=== PATIENT | female | born 1955 | race Caucasian/White ===

== ENCOUNTER 2016-07-19 05:08 | Inpatient (IN) | payer OTHER ==
[2016-07-07 12:18] LABS: URINE BILIRUBIN NEGATIVE (Negative); URINE BLOOD NEGATIVE (Negative); URINE COLOR YELLOW; URINE GLUCOSE-RANDOM* NEGATIVE (Negative); URINE KETONES NEGATIVE (Negative); URINE LEUKOCYTES-REFLEX NEGATIVE (Negative); URINE PROTEIN (DIPSTICK) NEGATIVE (Negative); URINE UROBILINOGEN 0.2 E.U./dl (0.2-1.0)
[2016-07-07 12:20] LABS: HEMATOCRIT 43.1 % (37.0-47.0); HEMOGLOBIN 14.7 gm/dL (12.0-15.0); MCH 29.8 pg (26.0-34.0); MCHC 34.1 % (28.0-37.0); MCV 87.5 fL (80.0-100.0); RBC 4.93 mil/uL (4.20-5.00); RDW 14.2 % (10.5-14.5); WBC 8.8 thou/uL (4.0-11.0)
[2016-07-07 12:30] LABS: PROTIME 10.6 Seconds (9.3-11.4)
[2016-07-07 12:40] LABS: ALBUMIN 3.9 g/dL (3.4-5.0); CALCIUM 9.7 mg/dL (8.5-10.1); CREATININE 0.7 mg/dL (0.6-1.3); POTASSIUM 3.7 mmol/L (3.5-5.1)
[2016-07-19] VITALS (7 sets, daily range): BP systolic 127–148; BP diastolic 77–89
[~2016-07-19] VITALS: Ht 157.5 cm; Wt 87.5 kg
--- NOTE | ~2016-07-19 | O ---
[facility] [place] [address] OPERATIVE REPORT Name: KYRIE JONES Room #: 540-P ADM IN M.R.#: [id number] Admission: 07/19/16 Attend Phys: Mainor Lugo MD Discharge: Date of : 57 Report #: [id number] THIS REPORT FOR: //name// CC: Romina Lugo DATE OF SERVICE: 07/19/2016 PREOPERATIVE DIAGNOSIS: Left knee degenerative joint disease, severe. POSTOPERATIVE DIAGNOSIS: Left knee degenerative joint disease, severe. OPERATIVE PROCEDURE: Left total knee arthroplasty. SURGEON: Mainor Lugo MD CHIMNEY MECHANIC: Cyrus Patino NP INDICATIONS FOR CHIMNEY MECHANIC: During the course of operation, extensive manipulation, retraction and limb positioning was required. This was afforded to me by my property assistant. ANESTHESIA: General. INDICATIONS FOR THE PROCEDURE: See hospital H and P. IMPLANTS UTILIZED: We used DePuy PFC knee system. We used a cruciate retaining femoral component of size 2.5. We used a size 2.5 tibial tray with a 10 mm insert and a 35 mm oval dome patella. DESCRIPTION OF PROCEDURE: After adequate general anesthesia had been obtained, the patient's left lower extremity was prepped and draped in the usual meticulous sterile fashion. The limb was gravity exsanguinated and tourniquet inflated to 350 torr. An anterior midline incision was made, subQ divided sharply. Hemostasis obtained with electrocautery. Medial parapatellar incision was made. Infrapatellar fat pad excised. Medial release performed. Drill was used to drill the distal femur. This hole was enlarged, irrigated, suctioned and then the intramedullary guide placed the full length of the femur. A distal femoral cutting guide was placed at 5 degrees of valgus which matched the patient's anatomy and was placed in appropriate rotation. Distal femoral cutting guide pinned into place, distal femoral cut was made. Measuring device determined size 2.5 as the appropriate size for this patient. We impacted the cutting guide into place and the anterior, posterior and chamfer cuts were made. Rongeur was used to remove additional osteophytes. [facility] [address] [place] [address] OPERATIVE REPORT Name: ROBERTKYRIE B Room #: 540-P ADM IN M.R.#: [id number] Admission: 07/19/16 Attend Phys: Mainor Lugo MD Discharge: Date of : 57 Report #: [id number] At this time, the ACL was transected, tibia translated anteriorly, menisci were excised. The drill was used to drill the central portion of the tibia. This hole was enlarged, irrigated, suctioned and then the intramedullary guide placed the full length of the tibia. The proximal tibial cutting guide placed at appropriate height. Proximal tibial cut was made. 2.5 tray gave us the best coverage on the tibia. Trial components were put in position. With 10 spacer, she had the best flexion and extension gap. The patella was measured, cutting guide clamped into place, patellar cut was made, 35 template gave us the best coverage. Pedicles were drilled, trial components were put in position and tracked normally. At this time, we took the knee through several cycles of flexion and extension. The tibial tray rotation was marked, distal femur drilled and trial components removed. Tibial keel cuts were made. We irrigated the knee with both pulse lavage and antibiotic irrigation. Bone plugs were placed to proximal tibia and distal femur. The cement was vacuum mixed, and when it reached the appropriate consistency, the knee was thoroughly dried. The tibial tray was cemented into place. Excess cement was removed. The polyethylene was impacted into place and the femur impacted into place and the knee was taken out to 30 degrees of flexion and uniform compression placed across the components. Patellar button was then cemented into place and again excess cement was removed. Irrigation was placed in the wound and allowed to rest in the wound until the cement fully cured. When it had done so, the knee was irrigated, dried thoroughly and inspected. Drains were placed superolaterally both deep and superficial. The retinacular layer closed with a combination of interrupted [id number]-dy-[id number] #1 Vicryl as well as running #1 Tevdek. SubQ closed with 2-0 Monocryl, skin closed with rupert. Sterile compressive dressing was complied. Tourniquet deflated. <ELECTRONICALLY SIGNED> By: Mainor Lugo MD 07/19/16 1421 1220 1313 Mainor Lugo MD /nt
[~2016-07-19 05:08] MED LIST: ALEVE220 MG PO; COLACE 100 MG100 MG PO; DICLOFENAC SODI75 MG PO; FISH OIL 1,2001 EAC4 PO; GLUCOSAMINE CH1 EA10 PO; HYDROCHLOROTHIA25 M1 PO; HYDROCODONE-AP1 EAC6 PO; MS CONTIN15 MG PO; NORVASC10 MG PO; PERCOCET 10-321 EACH PO; PRINIVIL40 MG PO; SENNA PO; TUMS PO; TURMERIC500 M1 PO; XARELTO10 MG PO; ZINC50 M1 PO
[2016-07-20] VITALS (7 sets, daily range): BP systolic 114–138; BP diastolic 65–85
[2016-07-20 03:48] LABS: HEMATOCRIT 37.1 % (37.0-47.0); HEMOGLOBIN 12.3 gm/dL (12.0-15.0); MCH 29.6 pg (26.0-34.0); MCHC 33.1 % (28.0-37.0); MCV 89.4 fL (80.0-100.0); RBC 4.15 mil/uL (4.20-5.00); RDW 14.5 % (10.5-14.5); WBC 15.3 thou/uL (4.0-11.0)
[2016-07-21 03:30] VITALS: BP 120/80
[2016-07-21 03:53] LABS: HEMATOCRIT 34.7 % (37.0-47.0); HEMOGLOBIN 11.5 gm/dL (12.0-15.0); MCH 29.5 pg (26.0-34.0); MCHC 33.2 % (28.0-37.0); RBC 3.9 mil/uL (4.20-5.00); RDW 14.2 % (10.5-14.5); WBC 12.4 thou/uL (4.0-11.0)
[2016-07-21 16:33] VITALS: BP 114/70
[2016-07-21 20:07] VITALS: BP 126/70
[2016-07-22 03:25] VITALS: BP 112/67
[2016-07-22 05:48] LABS: HEMATOCRIT 33.5 % (37.0-47.0); HEMOGLOBIN 11.1 gm/dL (12.0-15.0); MCH 29.8 pg (26.0-34.0); MCHC 33.1 % (28.0-37.0); MCV 89.9 fL (80.0-100.0); RBC 3.73 mil/uL (4.20-5.00); RDW 14.7 % (10.5-14.5); WBC 9.9 thou/uL (4.0-11.0)
[2016-07-22] MEDS ORDERED: PERCOCET 10-321 EACH PO (07:08)
[2016-07-22] MEDS ORDERED: XARELTO10 MG PO (07:08)
[2016-07-22 07:56] VITALS: BP 116/69
[2016-07-22 10:16] VITALS: BP 114/65
[2016-07-22 10:42] VITALS: BP 114/65
== END 2016-07-22 12:46 | disposition home health service (06) | DRG 470 ==
LOC: 5S 05:08 → TBA 05:08 → PRE 10:38 → 5S 13:35 → PRE 13:55 → 5S 07-22 12:46
PROVIDERS: Orthopaedic Surgery
PROC: 0SRD0J9 Replacement of Left Knee Joint with Synthetic Substitute, Cemented, Open Approach (ICD-10-PCS; principal; 2016-07-19)
DX: M17.12 Unilateral primary osteoarthritis, left knee (principal); I10 Essential (primary) hypertension; K21.9 Gastro-esophageal reflux disease without esophagitis; Z96.651 Presence of right artificial knee joint; Z82.49 Family history of ischemic heart disease and other diseases of the circulatory system; Z83.6 Family history of other diseases of the respiratory system; Z83.3 Family history of diabetes mellitus; Z80.9 Family history of malignant neoplasm, unspecified; Z79.899 Other long term (current) drug therapy
CPT/HCPCS: 10785; 50010; 50101; 50415; 50612; 50954; 51130; 51225; 51412; 51771; 52001; 52282; 53000; 53078; 53364; 56525; 56527; 62110; 62900; 70005